=== PATIENT | male | born 1980 | race Caucasian/White ===

== ENCOUNTER 2019-01-13 10:00 | Emergency (ER) | payer MEDICAID ==
[2019-01-13] MEDS: KETOROLAC 60 MG INJ IM (12:43)
[2019-01-13] MEDS: HYDROCODONE/APAP (10/325) TAB PO (12:43)
== END 2019-01-13 12:56 | disposition home or self-care (01) ==
LOC: FTE 10:00
DX: M54.5 Low back pain (principal)
CPT/HCPCS: 96372; 99284-25